=== PATIENT | male | born 1990 | race Caucasian/White ===

== ENCOUNTER 2019-02-09 10:20 | Emergency (ER) | payer OTHER ==
[2019-02-09 10:25] VITALS: BP 140/81
--- NOTE | 2019-02-09 10:43 | ED Physician Documentation ---
PD HPI URI - Stated complaint Stated Complaint: SINUS PRESSURE - Chief complaint Chief Complaint: Heent - History obtained from History obtained from: Patient - History of Present Illness Timing - onset: How many weeks ago (1.5) Timing duration: Weeks (1.5) Timing details: Gradual onset Pain level max: 5 Pain level now: 4 Associated symptoms: Nasal congestion, Sinus pain (R facial). No: Fever, Chills Contributing factors: Sick contact. No: Travel, Immunocompromised, Unimmunized Improves by: Rest Worsened by: Activity Recently seen: Not recently seen Review of Systems Constitutional: denies: Fever, Chills GI: denies: Vomiting, Diarrhea Skin: denies: Rash Musculoskeletal: denies: Neck pain, Back pain Neurologic: denies: Headache PD PAST MEDICAL HISTORY - Past Medical History Past Medical History: Yes Other Past Medical History: seasonal allergies - Past Surgical History Past Surgical History: No - Present Medications Home Medications: Ambulatory Orders Medication Instructions Recorded Confirmed Acetaminophen [Tylenol] 650 mg PO ONCE 02/09/19 02/09/19 Amox/Clav 875/125 [Augmentin] 1 tab PO Q12H #14 tablet 02/09/19 Cetirizine HCl/Pseudoephedrine 1 each PO BID PRN #30 tab.er.12h 02/09/19 [Zyrtec-D Tablet] Cetirizine [ZyrTEC] 10 mg PO ONCE 02/09/19 02/09/19 Fluticasone [Flonase] 1 sprays SAMY DAILY 02/09/19 02/09/19 - Allergies Allergies/Adverse Reactions: Allergies Allergy/AdvReac Type Severity Reaction Status Date / Time No Known Drug Allergies Allergy Verified 02/09/19 10:25 - Living Situation Living Arrangement: reports: At home - Social History Does the pt smoke?: No Smoking Status: Never smoker Does the pt drink ETOH?: Yes Does the pt have substance abuse?: No PD ED PE NORMAL - Vitals Vital signs reviewed: Yes - General General: Alert and oriented X 3, No acute distress, Well developed/nourished - HEENT HEENT: PERRL, Ears normal, Moist mucous membranes, Pharynx benign, Other (Nasal turbinate swelling bilaterally. Tenderness to the right frontal sinus. Otherwise normal exam) - Neck Neck: Supple, no meningeal sign - Cardiac Cardiac: RRR, Strong equal pulses - Respiratory Respiratory: No respiratory distress, Clear bilaterally - Derm Derm: Warm and dry - Neuro Neuro: Alert and oriented X 3 - Psych Psych: Normal mood, Normal affect Results - Vitals Vitals: Vital Signs - 24 hr 02/09/19 10:22 Temperature 36.2 C L Heart Rate 88 Respiratory 18 Rate Blood Pressure 140/81 H O2 Saturation 100 Oxygen O2 Source Room air PD MEDICAL DECISION MAKING - ED course Complexity details: considered differential, d/w patient ED course: Patient with appears to be sinusitis, no fevers. Will trial on decongestants and then placed on antibiotics if he fails to improve. Patient is comfortable with this plan. Patient counseled regarding signs and symptoms for which I believe and urgent re-evaluation would be necessary. Patient with good understanding of and agreement to plan and is comfortable going home at this time This document was made in part using voice recognition software. While efforts are made to proofread this document, sound alike and grammatical errors may occur. Departure - Departure Disposition: 01 Home, Self Care Clinical Impression: Sinusitis Qualifiers: Sinusitis location: unspecified location Chronicity: acute Recurrence: non- recurrent Qualified Code(s): J01.90 - Acute sinusitis, unspecified Condition: Good Instructions: ED Sinusitis No Abx Follow-Up: KAUSHIK KAYE MD [Primary Care Provider] - Within 1 week Prescriptions: Amox/Clav 875/125 [Augmentin] 1 tab PO Q12H #14 tablet Cetirizine HCl/Pseudoephedrine [Zyrtec-D Tablet] 1 each PO BID PRN #30 tab.er.12h PRN Reason: nasal congestion Comments: Have the pharmacy place the Augmentin on hold, if you are not feeling better in 2-3 days, you can start the antibiotic. Return if you worsen.
== END 2019-02-09 10:56 | disposition home or self-care (01) ==
LOC: ED 10:20
DX: J01.90 Acute sinusitis, unspecified (principal)
CPT/HCPCS: 99283